=== PATIENT | female | born 1960 | race African-American/Black ===

== ENCOUNTER 2018-07-25 19:44 | Emergency (ER) | payer OTHER ==
[~2018-07-25] VITALS: Ht 149.9 cm; Wt 54.9 kg
[2018-07-25] MEDS ORDERED: NORVASC5 MG (20:00)
[2018-07-25] MEDS ORDERED: GLIPIZIDE ER5 MG (20:01)
[2018-07-25] MEDS ORDERED: LEVOXYL25 MCG (20:01)
== END 2018-07-25 23:42 | disposition home or self-care (01) ==
LOC: ER 19:44
DX: K57.30 Diverticulosis of large intestine without perforation or abscess without bleeding (principal); R10.32 Left lower quadrant pain

== ENCOUNTER 2019-08-24 13:34 | Outpatient (CLI) | payer OTHER ==
[~2019-08-24 13:34] MED LIST: GLIPIZIDE ER5 MG; LEVOXYL25 MCG; NORVASC5 MG
== END 2019-08-24 13:35 | disposition home or self-care (01) ==
LOC: SONOGRAMA 13:34 → MAMO-SONO 13:45
DX: E03.8 Other specified hypothyroidism (principal); E06.3 Autoimmune thyroiditis

== ENCOUNTER 2020-02-22 00:36 | Emergency (ER) | payer OTHER ==
[~2020-02-22] VITALS: Ht 149.9 cm; Wt 52.6 kg
[2020-02-22] MEDS ORDERED: ZYRTEC10 MG (00:57)
[2020-02-22] MEDS ORDERED: GLUMETZA500 MG (00:57)
[2020-02-22] MEDS ORDERED: NORFLEX100MG PO (06:33)
[2020-02-22] MEDS ORDERED: KETO10TA2 PO (06:33)
== END 2020-02-22 06:45 | disposition home or self-care (01) ==
LOC: ER 00:36 → CPU-OBS 00:38 → ER 06:45
DX: R07.89 Other chest pain (principal); M54.2 Cervicalgia
CPT/HCPCS: G0378; G0379; 93005

== ENCOUNTER 2020-08-11 19:55 | Emergency (ER) | payer OTHER ==
[~2020-08-11] VITALS: Ht 149.9 cm; Wt 52.2 kg
[~2020-08-11 19:55] MED LIST changes: +GLUMETZA500 MG; +KETO10TA2 PO; +NORFLEX100MG PO; +ZYRTEC10 MG
[2020-08-11] MEDS ORDERED: ZYRTEC10 M3 (20:06)
[2020-08-11] MEDS ORDERED: ROSUVASTATIN CA10 MG (20:06)
[2020-08-11] MEDS ORDERED: DICLOFENAC SODI75 MG PO (21:29)
== END 2020-08-11 21:57 | disposition home or self-care (01) ==
LOC: ER 19:55
DX: S60.012A Contusion of left thumb without damage to nail, initial encounter (principal); W18.09XA Striking against other object with subsequent fall, initial encounter; Y93.89 Activity, other specified; Y92.091 Bathroom in other non-institutional residence as the place of occurrence of the external cause; Y99.8 Other external cause status

== ENCOUNTER 2021-04-18 10:52 | Outpatient (CLI) | payer OTHER ==
[~2021-04-18 10:52] MED LIST changes: +DICLOFENAC SODI75 MG PO; +ROSUVASTATIN CA10 MG; +ZYRTEC10 M3
[2021-04-21] MEDS ORDERED: KETO10TA2 PO (03:20)
== END 2021-04-18 11:07 | disposition home or self-care (01) ==
LOC: MAMO-SONO 10:52
DX: N63.11 Unspecified lump in the right breast, upper outer quadrant (principal); N64.89 Other specified disorders of breast; Z12.31 Encounter for screening mammogram for malignant neoplasm of breast

== ENCOUNTER 2021-05-02 07:31 | Outpatient (CLI) | payer OTHER | END 2021-05-02 07:45 | disposition home or self-care (01) | LOC: SONOGRAMA 07:31 | PROVIDERS: ATTEND Obstetrics & Gynecology | DX: N64.89 Other specified disorders of breast (principal); R92.8 Other abnormal and inconclusive findings on diagnostic imaging of breast; N60.11 Diffuse cystic mastopathy of right breast ==

== ENCOUNTER 2024-08-17 10:06 | Outpatient (CLI) | payer OTHER | END 2024-08-17 10:24 | disposition home or self-care (01) | LOC: MAMO-SONO 10:06 | DX: N61.0 Mastitis without abscess (principal) ==

== ENCOUNTER 2025-03-30 21:26 | Emergency (ER) | payer OTHER ==
[~2025-03-30] VITALS: Ht 149.9 cm; Wt 48.5 kg
[2025-03-30] MEDS ORDERED: GRALISE600 MG PO (22:08)
[2025-03-30] MEDS ORDERED: KETOROLAC TROMETHAMINE 30 MG VIAL IV STA (23:38)
[2025-03-30] MEDS ORDERED: TRAMADOL HCL 50 MG TABLET PO STA (23:38)
[2025-03-30] MEDS ORDERED: KETOROLAC TROMETHAMINE 30 MG VIAL ONE (23:50)
[2025-03-30 23:57] LABS: BASO % 1.1 % (0.1-1.2); EOS # 0.14 (0.04-0.54); EOS % 1.3 % (0.7-7.0); LYMPH # 3.77 (1.18-3.74); LYMPH % 35.8 % (19.3-53.1); MEAN PLATELET VOLUME 10.90 fl (9.4-12.4); MONO # 0.85 (0.24-0.82); MONO % 8.1 % (4.7-12.5); NEUT # 5.64 (1.56-6.13); NEUT % 53.5 % (34.0-71.1); RED CELL DISTRIBUTION WIDTH 11.9 % (11.6-14.4)
[2025-03-31 00:20] LABS: BUN CREA RATIO 13.0 (7.0-25.0); CREATININE SERUM 0.68 mg/dL (0.55-1.02); GFR 87.11; GLUCOSE FASTING 112.0 mg/dL (65-100); OSMOLALITY SERUM 286.0 MOSM/KG (275-295)
[2025-03-31 01:10] LABS: URINE APPEARANCE Clear; URINE BILIRRUBIN Negative (NEGATIVE); URINE BLOOD Negative; URINE COLOR Yellow; URINE GLUCOSE Negative (NEGATIVE); URINE KETONE Negative (NEGATIVE); URINE LEUKOCYTE Small; URINE NITRATE Negative; URINE PROTEIN Negative (NEGATIVE); URINE UROBILINOGEN 1.0 E.U./dl
[2025-03-31 01:14] LABS: URINE BACTERIA 29.9 uL (0.0-1933); URINE CAST 0.00 uL (0.0-1.40); URINE EPITHELIAL CELLS 1.9 uL (0.0-38.8); URINE RBC 3.8 uL (0.0-20.8); URINE WBC 43.9 uL (0.0-23.2)
[2025-03-31] MEDS ORDERED: CEFTRIAXONE SODIUM 1,000 MG VIAL ONE (03:14)
[2025-03-31] MEDS ORDERED: CEFTRIAXONE SODIUM 1,000 MG VIAL IV STA (03:14)
[2025-03-31] MEDS ORDERED: ORPHENADRINE CITRATE 30 MG/ML AMPUL ONE (03:14)
[2025-03-31] MEDS ORDERED: ORPHENADRINE CITRATE 30 MG/ML AMPUL IV STA (03:14)
[2025-03-31] MEDS ORDERED: CEPHALEXIN500 MG PO (05:05)
== END 2025-03-31 05:31 ==
LOC: ER 21:26
DX: N39.0 Urinary tract infection, site not specified (principal); N13.30 Unspecified hydronephrosis; K57.30 Diverticulosis of large intestine without perforation or abscess without bleeding